=== PATIENT | female | born 1960 | race Caucasian/White ===

== ENCOUNTER → 2016-12-25 | Outpatient (CLI) | payer BC ==
[~2016-12-25] MED LIST: ASCO500T20 PO; CALC1TAB76 PO; DIPH25TA82 PO; ESTR1TAB24 PO; ESTR1TAB50 PO; ESTR2TAB PO; HYDR-3730 PO; HYDR1TAB PO; KRIL1CAP12 PO; KRIL500C PO; METH4TAB PO; MULT-1029 PO; MULT-974 PO; NF-ESOM40C PO; OXYC-12 PO; SCR1T1 PO; VITA400T9 PO
--- OUTSIDE RECORDS SUMMARY | 2016-12-25 11:08 | XMS REPORT | Continuity of Care Document ---
Author Author [facility] Organization [facility] Address Unknown Phone Unavailable Care Team Providers Care Keyboard Action Assembler Name Role Phone SOFIA WHITEHEAD MD PCP Insurance Providers Payer Name Policy Number Subscriber Name Relationship [facility] [id number] Andrew Arzola W 01 Advance Directives Directive Response Recorded Date/Time Advance Directives No 03/15/15 11:10am Health Care Power of Window And Door Installer No 03/15/15 11:10am Organ Donor Yes 03/15/15 11:10am Resuscitation Status Full Code 03/15/15 11:10am Problems No known problems or medical conditions. Medications Medication Dose Route Sig Days/Qty Instructions Order Date Discontinued Date Status Diphenhydramine HCl (Benadryl) 1 Each PO QID PRN 10/18/10 03/15/15 Discontinued Sucralfate 1 Gm PO BEFORE MEALS AND AT BEDTIME 10/18/10 Active Esomeprazole Magnesium 1 Cap PO DAILY 30 Qty 10/18/10 Active Acetaminophen/Hydrocodone Bitart 1 - 2 Each PO Q4HR PRN 14 Qty 03/15/15 Discontinued Methylprednisolone 1 Packet PO DIRECTED 1 Qty 01/24/12 03/15/15 Discontinued Estradiol/Noreth Ac 1 Each PO DAILY 03/15/15 Active Multivitamin 1 Each PO DAILY 03/15/15 Active Krill Oil 500 Mg PO DAILY 03/15/15 Active Vitamin E Mixed 400 Unit PO DAILY 03/15/15 Active Ascorbic Acid 500 Mg GT DAILY 03/15/15 Active Social History Social History Problem Response Recorded Date/Time Recent Foreign Travel No 03/15/2015 11:21am Smoking Status Never a Smoker 03/15/2015 11:14am Do you dip or chew tobacco? No 03/15/2015 11:14am Query Response Start Date Stop Date Smoking Status Never a Smoker Hospital Discharge Instructions No hospital discharge instructions. Plan of Care No plan of care. Functional Status No functional status results. Allergies, Adverse Reactions, Alerts Allergen Type Severity Reaction Status Last Updated Sulfa (Sulfonamide Antibiotics) ([id number]) Allergy Unknown Active 27/05 Codeine Allergy Unknown Active 04/27/07 Erythromycin base Allergy Unknown Active 04/27/07 Immunizations Name Given Type Date of Influenza Vaccine 08/15/11 Historical Vital Signs Acute Vital Signs Vital Response Date/Time Temperature (Fahrenheit) 97.8 degrees F (97.6 - 99.5) Temperature (Calculated Celsius) 36.36172 degrees C (36.4 - 37.5) Temperature Source Tympanic Pulse Rate (adult) 61 bpm (60 - 90) Respiratory Rate 16 bpm (12 - 24) O2 Sat by Pulse Oximetry 97 % (88 - 100) Blood Pressure 117/76 mm Hg Pain Pain Intensity 0 Height (Feet) 5 feet Height (Inches) 7.00 inches Height (Calculated Centimeters) 170.543793 cm Weight (Pounds) 209 pounds Weight (Calculated Grams) 59929.806 gm Weight (Calculated Kilograms) 94.974931 kilograms Height 5 ft 7 in Weight 209 lb Body Mass Index 32.7 kg/m^2 Results No known relevant diagnostic tests, laboratory data and/or discharge summary. Procedures Procedure Status Date Provider(s) Esophagogastroduodenoscopy (EGD) with dilation completed 03/15/15 KEVIN LIRA MD Encounters Encounter Location Date/Time Registered [facility] 03/15/15 9:56am Registered Clinic [facility] 03/13/15 5:58am
[2016-12-25 11:58] LABS: THYROID STIMULATING HORMONE 2.32 UIU/ML (0.35-4.94)
== END ==
LOC: LAB 11:05
PROVIDERS: ATTEND Internal Medicine Endocrinology, Diabetes & Metabolism
DX: E03.9 Hypothyroidism, unspecified (principal)
CPT/HCPCS: 36415; 84439; 84443

== ENCOUNTER → 2017-01-12 | Outpatient (CLI) | payer BC ==
--- OUTSIDE RECORDS SUMMARY | 2017-01-12 16:09 | XMS REPORT | Continuity of Care Document ---
Author Author [facility] Organization [facility] Address Unknown Phone Unavailable Care Team Providers Care Credit Support Specialist Name Role Phone SOFIA WHITEHEAD MD PCP Insurance Providers Payer Name Policy Number Subscriber Name Relationship [facility] [id number] Andrew Arzola W 01 Advance Directives Directive Response Recorded Date/Time Advance Directives No 03/15/15 11:10am Health Care Power of Furnace Mechanic No 03/15/15 11:10am Organ Donor Yes 03/15/15 [...] Reaction Status Last Updated Sulfa (Sulfonamide Antibiotics) ([id number]) Allergy Unknown Active 27/05 Codeine Allergy Unknown Active 04/27/07 Erythromycin base Allergy Unknown Active 04/27/07 Immunizations Name Given Type Date of Influenza Vaccine 08/15/11 Historical Vital Signs Acute Vital Signs Vital Response Date/Time Temperature (Fahrenheit) 97.8 degrees F (97.6 - 99.5) Temperature (Calculated Celsius) 36.68440 degrees C (36.4 - 37.5) Temperature Source Tympanic Pulse Rate (adult) 61 bpm (60 - 90) Respiratory Rate 16 bpm (12 - 24) O2 Sat by Pulse Oximetry 97 % (88 - 100) Blood Pressure 117/76 mm Hg Pain Pain Intensity 0 Height (Feet) 5 feet Height (Inches) 7.00 inches Height (Calculated Centimeters) 170.449737 cm Weight (Pounds) 209 pounds Weight (Calculated Grams) 14422.806 gm Weight (Calculated Kilograms) 94.526482 kilograms Height 5 ft 7 in Weight 209 lb Body Mass Index 32.7 kg/m^2 Results No known relevant diagnostic tests, laboratory data and/or discharge summary. Procedures Procedure Status Date Provider(s) Esophagogastroduodenoscopy (EGD) with dilation completed 03/15/15 KEVIN LIRA MD Encounters Encounter Location Date/Time Registered Surgical Day Care [facility] 03/15/15 9:56am Registered Clinic [facility] 03/13/15 5:58am
--- NOTE | 2017-01-12 18:24 | Diagnostic Imaging Report ---
PROCEDURE: US Thyroid. TECHNIQUE: Multiple real-time grayscale images were obtained of the thyroid in various projections. INDICATION: Globus sensation. FINDINGS: The right thyroid lobe is 4.5 x 1.8 x 1.1 cm. The left lobe is 4.2 x 1.1 x 1.1 cm. There is a 0.5 x 0.4 x 0.8 cm nodule in the right thyroid lobe with mixed solid and cystic component seen. No other thyroid nodule noted. IMPRESSION: Nonspecific 0.8 cm mixed solid and cystic nodule in the upper right thyroid lobe. A follow-up study in 6-12 months is recommended. Dictated by: Dictated on workstation # [id number]
== END ==
LOC: RAD 14:02
PROVIDERS: ATTEND Internal Medicine Endocrinology, Diabetes & Metabolism
DX: E04.1 Nontoxic single thyroid nodule (principal)
CPT/HCPCS: 76536

== ENCOUNTER → 2017-11-22 | Outpatient (CLI) | payer BC ==
--- NOTE | 2017-11-22 14:52 | Diagnostic Imaging Report ---
PROCEDURE: US Thyroid. TECHNIQUE: Multiple real-time grayscale images were obtained of the thyroid in various projections. INDICATION: Thyroid nodule. Comparison made with prior examination from 01/12/2017. FINDINGS: Right lobe of the thyroid measures 5 x 1.5 x 1.2 cm. Left lobe measures 4 x 1.1 x 1.2 cm. The previously seen nodule in the right lobe of the thyroid has resolved. There are no discrete solid or cystic nodules in either lobe. IMPRESSION: Normal thyroid ultrasound. Dictated by: Dictated on workstation # [id number]
== END ==
LOC: RAD 13:35
PROVIDERS: ATTEND Internal Medicine Endocrinology, Diabetes & Metabolism
DX: E04.1 Nontoxic single thyroid nodule (principal)
CPT/HCPCS: 76536

== ENCOUNTER → 2017-11-26 | Outpatient (CLI) | payer BC | LOC: LAB 15:40 | PROVIDERS: ATTEND Internal Medicine Endocrinology, Diabetes & Metabolism | DX: E03.9 Hypothyroidism, unspecified (principal) | CPT/HCPCS: 36415; 84443 ==

== ENCOUNTER → 2018-04-28 | Outpatient (CLI) | payer BC ==
--- NOTE | 2018-04-28 19:22 | Diagnostic Imaging Report ---
INDICATION: Routine screening. COMPARISON: Comparison is made with prior studies from 07/29/2016 and 05/30/2015. TECHNIQUE: 2D and 3D bilateral screening mammography was performed with computer-aided detection (CAD) system. FINDINGS: Both breasts remain heterogeneously dense, limiting the sensitivity of mammography. The parenchymal pattern is stable. There are benign calcifications present. Benign-appearing calcifications have developed in the medial aspect of the left breast. No mass or malignant appearing microcalcifications are seen. The axillae are unremarkable. IMPRESSION: No mammographic features suspicious for malignancy are identified. ACR BI-RADS Category 2: Benign findings. Result letter will be mailed to the patient. Note: At least 10% of breast cancer is not imaged by mammography. Dictated by: Dictated on workstation # [id number]
== END ==
LOC: RAD 07:25
PROVIDERS: ATTEND Obstetrics & Gynecology
DX: Z12.31 Encounter for screening mammogram for malignant neoplasm of breast (principal)
CPT/HCPCS: 77067

== ENCOUNTER → 2018-05-20 | Outpatient (CLI) | payer BC ==
[2018-05-20 07:52] LABS: BASOPHILS % (AUTO) 0 % (0-10); EOSINOPHILS # (AUTO) 0.3 10^3/uL (0.0-0.3); EOSINOPHILS % (AUTO) 4 % (0-10); HEMATOCRIT 42 % (35-52); HEMOGLOBIN 13.9 G/DL (11.5-16.0); LYMPHOCYTES # (AUTO) 2.5 X 10^3 (1.0-4.0); LYMPHOCYTES % (AUTO) 39 % (12-44); MEAN CORPUSCULAR HEMOGLOBIN 30 PG (25-34); MEAN CORPUSCULAR HGB CONC 33 G/DL (32-36); MEAN CORPUSCULAR VOLUME 91 FL (80-99); MEAN PLATELET VOLUME 10.2 FL (7.4-10.4); MONOCYTES # (AUTO) 0.7 X 10^3 (0.0-1.0); MONOCYTES % (AUTO) 11 % (0-12); NEUTROPHILS # (AUTO) 2.9 X 10^3 (1.8-7.8); NEUTROPHILS % (AUTO) 46 % (42-75); PLATELET COUNT 238 10^3/uL (130-400); RED BLOOD COUNT 4.61 10^6/uL (4.35-5.85); RED CELL DISTRIBUTION WIDTH 13.7 % (10.0-14.5); WHITE BLOOD COUNT 6.4 10^3/uL (4.3-11.0)
[2018-05-20 08:17] LABS: ALANINE AMINOTRANSFERASE 43 U/L (0-55); ALBUMIN 3.6 GM/DL (3.2-4.5); ALKALINE PHOSPHATASE 59 U/L (40-136); BILIRUBIN,TOTAL 0.4 MG/DL (0.1-1.0); BUN/CREATININE RATIO 16; CALCIUM 8.8 MG/DL (8.5-10.1); CARBON DIOXIDE 26 MMOL/L (21-32); CHLORIDE 106 MMOL/L (98-107); CHOLESTEROL 194 MG/DL (< 200); GFR ESTIMATED > 60; GLUCOSE 94 MG/DL (70-105); HDL CHOLESTEROL 44 MG/DL (40-60); SODIUM 138 MMOL/L (135-145); TOTAL PROTEIN 6.8 GM/DL (6.4-8.2); TRIGLYCERIDES 201 MG/DL (<150); VLDL CHOLESTEROL 40 MG/DL (5-40)
[2018-05-20 08:41] LABS: BAND NEUTROPHILS 0 %; BASOPHILS % (MANUAL) 0 %; EOSINOPHILS % (MANUAL) 7 %; LYMPHOCYTES % (MANUAL) 35 %; MONOCYTES % (MANUAL) 11 %; NEUTROPHILS % (MANUAL) 47 %; RBC MORPH NORMAL
== END ==
LOC: LAB 07:29
PROVIDERS: ATTEND Family Medicine
DX: Z00.00 Encounter for general adult medical examination without abnormal findings (principal); E05.90 Thyrotoxicosis, unspecified without thyrotoxic crisis or storm
CPT/HCPCS: 36415; 80053; 80061; 84443; 85007; 85027

== ENCOUNTER → 2019-01-04 | Outpatient (CLI) | payer BC ==
--- NOTE | 2019-01-04 14:57 | Diagnostic Imaging Report ---
PROCEDURE: MRI lumbar spine. TECHNIQUE: Multiplanar, multisequence MRI of the lumbar spine was performed without contrast. INDICATION: Low back pain and left leg pain as well as bilateral leg numbness. Comparison is made with prior MRI of the lumbar spine from 03/12/2011. Curvature of the lumbar spine is normal. There is minimal retrolisthesis of L2 on L3 with minimal anterolisthesis of L5 on S1. Vertebral body heights are maintained. No compression fracture seen. No geographic marrow lesion is seen. There is some generalized degenerative disc disease with variable disc space narrowing and desiccation. The conus is unremarkable at the L1-L2 level. T12-L1: Central canal is widely patent. Neural foramina are patent. L1-L2: Central canal is widely patent. Neuroforamina are patent. L2-L3: There is some mild broad-based disc/osteophyte complex in the far lateral portions on the right and left producing some mild neuroforaminal narrowing. Central canal is widely patent. No focal disc protrusion is seen. L3-L4: Central canal widely patent. Neural foramina are patent. L4-L5: There is some slight flattening of the ventral thecal sac due to annular bulging but the central canal remains patent. Right neural foramen is mildly narrowed. There does appear to be a probable large extruded disc in the far left lateral portion producing narrowing of the left neural foramen and impingement upon the L4 nerve root. Extruded disc in the far left lateral portion measures approximate 11 mm x 13 mm. L5-S1: Broad-based disc/osteophyte complex does indent the ventral thecal sac. There is mild narrowing of the canal. There are hypertrophic facet changes present. There is moderate right and mild left neural foraminal stenosis. Paraspinous tissues are unremarkable. IMPRESSION: Multilevel lumbar spondylosis, described level by level above. There does appear to be a large left far lateral extruded disc and perhaps sequestered disc at the L4-L5 level, likely impinging upon the exiting left L4 nerve. No acute compression fracture is seen. Dictated by: Dictated on workstation # [id number]
== END ==
LOC: RAD 13:45
PROVIDERS: ATTEND Family Medicine
DX: M48.07 Spinal stenosis, lumbosacral region (principal); M47.27 Other spondylosis with radiculopathy, lumbosacral region; M51.16 Intervertebral disc disorders with radiculopathy, lumbar region; M43.16 Spondylolisthesis, lumbar region
CPT/HCPCS: 72148

== ENCOUNTER 2020-07-04 11:17 | Outpatient (CLI) | payer BC ==
[~2020-07-04] VITALS: Ht 170.2 cm; Wt 100.9 kg
[2020-07-04] MEDS: VANCOMYCIN 1 GM/NS 250 ML IVPB IV NR ×2 (12:13)
[2020-07-04 13:25] VITALS: BP 137/69
== END 2020-07-04 13:25 | disposition home or self-care (01) ==
LOC: SDC 11:17
PROVIDERS: ATTEND Nurse Practitioner Family
DX: B95.62 Methicillin resistant Staphylococcus aureus infection as the cause of diseases classified elsewhere (principal)
CPT/HCPCS: 96365

== ENCOUNTER 2020-10-01 14:57 | Day surgery (SDC) | payer BC ==
[~2020-10-01] VITALS: Ht 170.2 cm; Wt 90.9 kg
[2020-10-01 14:55] VITALS: BP 140/70
[2020-10-01] MEDS ORDERED: VANCOMYCIN 1 GM/NS 250 ML IVPB IV ONE ×2 (15:15)
[2020-10-01] MEDS ORDERED: MULT-1029 PO (17:58)
[2020-10-01] MEDS ORDERED: ASCO500T7 PO (17:58)
[2020-10-01] MEDS ORDERED: LEVO50TA PO (17:58)
[2020-10-01] MEDS ORDERED: VITA400T9 PO (17:58)
[2020-10-01] MEDS ORDERED: CALC-227 PO (17:58)
[2020-10-01] MEDS ORDERED: KRIL1CAP12 PO (17:58)
[2020-10-01] MEDS ORDERED: MELO15TA14 PO (17:58)
== END 2020-10-01 16:40 | disposition home or self-care (01) ==
LOC: SDC 14:57
PROVIDERS: ATTEND Family Medicine
DX: L03.319 Cellulitis of trunk, unspecified (principal); Z88.2 Allergy status to sulfonamides; Z88.5 Allergy status to narcotic agent; Z88.1 Allergy status to other antibiotic agents
CPT/HCPCS: 96365

== ENCOUNTER 2020-10-02 14:59 | Outpatient (CLI) | payer BC ==
[~2020-10-02] VITALS: Ht 170.2 cm; Wt 90.9 kg
[~2020-10-02 14:59] MED LIST changes: +ASCO500T7 PO; +CALC-227 PO; +LEVO50TA PO; +MELO15TA14 PO
[2020-10-02 15:12] VITALS: BP 140/61
[2020-10-02] MEDS ORDERED: VANCOMYCIN 1 GM/NS 250 ML IVPB IV ONE ×2 (15:15)
--- NOTE | 2020-10-02 16:40 | NUR ---
VANCOMYCIN INFUSION COMPLETE. APPROX 2X3 INCH AREA OF LIGHT PINK SKIN NOTED PROXIMAL TO IV SITE. PT STATES IT FEELS "A LITTLE ITCHY". PT STATES SHE HAS HAD SLIGHT TO MILD ITCHING WITH MULTIPLE PREVIOUS VANCOMYCIN INFUSIONS AND THAT HER DR IS AWARE, HAS TOLD HER TO TAKE BENADRYL. DENIES ANY OTHER COMPLAINTS. ADVISED PT TO RETURN TO HOSPITAL IMMEDIATELY FOR INCREASED RASH, DIFFICULTY BREATHING, FACIAL OR THROAT SWELLING, OR ANY OTHER PROBLEMS OR CONCERNS. PT STATES SHE HAS APPOINTMENT TO SEE HER DOCTOR TOMORROW FOR FOLLOW UP. IV DC'D.
== END 2020-10-02 16:40 | disposition home or self-care (01) ==
LOC: SDC 14:59
PROVIDERS: ATTEND Nurse Practitioner Family
DX: A49.02 Methicillin resistant Staphylococcus aureus infection, unspecified site (principal); L02.211 Cutaneous abscess of abdominal wall
CPT/HCPCS: 96365

== ENCOUNTER → 2020-10-14 | Outpatient (CLI) | payer BC ==
--- NOTE | 2020-10-15 09:17 | Diagnostic Imaging Report ---
INDICATION: Routine screening. COMPARISON: 06/19/2019 and 04/28/2018. TECHNIQUE: 2D and 3D bilateral screening mammography was performed with CAD. FINDINGS: Both breasts remain heterogeneously dense, limiting the sensitivity of mammography. The parenchymal pattern appears stable. No mass or malignant appearing microcalcifications are seen. There are benign calcifications present. The axillae are unremarkable. IMPRESSION: No mammographic features suspicious for malignancy are identified. ACR BI-RADS Category 2: Benign findings. Result letter will be mailed to the patient. Note: At least 10% of breast cancer is not imaged by mammography. Dictated by: Dictated on workstation # [id number]
== END ==
LOC: RAD 14:19
PROVIDERS: ATTEND Nurse Practitioner Family
DX: Z12.31 Encounter for screening mammogram for malignant neoplasm of breast (principal)
CPT/HCPCS: 77063; 77067

== ENCOUNTER → 2021-08-11 | Outpatient (CLI) | payer BC ==
--- NOTE | 2021-08-11 11:38 | Diagnostic Imaging Report ---
EXAMINATION: Lumbar spine MRI without contrast, 08/11/2021. TECHNIQUE: Multiplanar, multisequence MRI of the lumbar spine was performed without contrast. INDICATION: Worsening low back pain. FINDINGS: There is minimal grade 1 anterolisthesis of L5 on S1. Remaining alignment is preserved. Vertebral body heights are maintained. Tip of the conus is unremarkable in appearance and location. L1-L2: There is intervertebral disc space narrowing, disc desiccation, and mild broad-based bulging disc material with bilateral facet and ligamentum flavum hypertrophy. Secondary mild central narrowing is noted. There is no significant neural foraminal stenosis. L2-L3: There is intervertebral disc space narrowing and disc desiccation as well as bilateral facet and ligamentum flavum hypertrophy. No central stenosis. Neural foramina demonstrate moderate narrowing bilaterally. L3-L4: There is bilateral facet and ligamentum flavum hypertrophy. No significant bulging disc material. Central canal is patent. Neural foramina are unremarkable. L4-L5: There is intervertebral disc space narrowing, disc desiccation, and a broad-based bulging disc. There is bilateral facet and ligamentum flavum hypertrophy. Findings cause mild central stenosis with narrowing of the right lateral recess. There is moderate bilateral neural foraminal stenosis. L5-S1: There is disc desiccation with a broad-based bulging disc. There is bilateral facet and ligamentum flavum hypertrophy. There is moderate central stenosis with narrowing of the left lateral recess. There is moderate left neural foraminal narrowing. The right neural foramen is patent. The visualized intra-abdominal structures demonstrate cystic lesions in the right kidney, too small for characterization. No acute abnormality appreciated. IMPRESSION: 1. Multilevel degenerative findings as discussed above. Dictated by: Dictated on workstation # [id number]
== END ==
LOC: RAD 10:15
PROVIDERS: ATTEND Family Medicine
DX: M47.817 Spondylosis without myelopathy or radiculopathy, lumbosacral region (principal); M51.36 Other intervertebral disc degeneration, lumbar region; N28.1 Cyst of kidney, acquired; M51.27 Other intervertebral disc displacement, lumbosacral region; M48.07 Spinal stenosis, lumbosacral region
CPT/HCPCS: 72148

== ENCOUNTER → 2022-02-24 | Outpatient (CLI) | payer BC ==
[~2022-02-24] MED LIST changes: -ESTR2TAB PO; +ESTR2TAB3 PO
--- NOTE | 2022-02-24 12:36 | Diagnostic Imaging Report ---
Indication: Routine screening. Comparison is made with prior mammogram 10/14/2020 and 06/19/2019. 2-D and 3-D bilateral screening mammography was performed with CAD. CAD monitoring, CABG. Both breasts are heterogeneously dense, limiting the sensitivity of mammography. Benign calcifications are noted bilaterally. No mass or malignant-appearing microcalcifications are seen. Axillae are unremarkable. IMPRESSION: BI-RADS Category 2 No mammographic features suspicious for malignancy are identified. ACR BI-RADS Category 2: Benign findings. Result letter will be mailed to the patient. Note: At least 10% of breast cancer is not imaged by mammography. Dictated by: Dictated on workstation # [id number]
== END ==
LOC: RAD 09:00
PROVIDERS: ATTEND Nurse Practitioner Family
DX: Z12.31 Encounter for screening mammogram for malignant neoplasm of breast (principal)
CPT/HCPCS: 77063; 77067

== ENCOUNTER → 2022-05-13 | Outpatient (CLI) | payer BC ==
--- NOTE | 2022-05-13 16:51 | Diagnostic Imaging Report ---
PROCEDURE: US Renal/Bladder. TECHNIQUE: Multiple real-time grayscale images were obtained over the kidneys in various projections bilaterally. INDICATION: Urinary frequency. COMPARISON: None. FINDINGS: Right: The right kidney measures 9.5 cm in length. Renal cortical thickness and echogenicity are within normal limits. There is no evidence of calculi, solid focal mass or hydronephrosis. No perinephric fluid collections are identified. Left: The left kidney measures 9.1 cm in length. Renal cortical thickness and echogenicity are within normal limits. Ill-defined area of hypoattenuation is seen in the left kidney measuring 3.6 x 3.7 cm with some internal vascularity. There is no evidence of calculi or hydronephrosis. No perinephric fluid collections are identified. There is no abdominal ascites. Views of the pelvis demonstrate a nondistended urinary bladder. The bilateral ureteral jets are visualized. No large intraluminal filling defect or calculi are identified. IMPRESSION: 1. Indeterminate area in the left kidney with internal vascularity measuring 3.6 x 3.7 cm. This may represent a renal mass. Recommend further evaluation with contrast-enhanced CT of the abdomen and pelvis. Dictated by: Dictated on workstation # [id number]
== END ==
LOC: RAD 14:41
PROVIDERS: ATTEND Nurse Practitioner Family
DX: R35.0 Frequency of micturition (principal)
CPT/HCPCS: 76770

== ENCOUNTER → 2022-05-20 | Outpatient (CLI) | payer BC ==
[~2022-05-20] MED LIST changes: +CATHETER FLUSH 10 ML SYR IV PRN; +HOLD METFORMIN - RECEIVED CONTRAST 20 ML VIAL IV SCH; +IOHEXOL 350 MG/ML 100 ML (OMNIPAQUE 350) VIAL IV ONE; +NS 100 ML (IVPB) BAG IV ONE
[2022-05-20 09:57] LABS: CREATININE SERUM 1.01 MG/DL (0.60-1.30)
--- NOTE | 2022-05-20 10:58 | Diagnostic Imaging Report ---
EXAMINATION: CT abdomen with and without intravenous contrast. TECHNIQUE: Precontrast acquisitions were acquired through the abdomen . Multiple contiguous axial images were obtained through the abdomen after the administration of intravenous contrast. All CT scans use one or more of the following dose optimizing techniques: automated exposure control, MA and/or KvP adjustment based on patient size and exam type or iterative reconstruction. HISTORY: Renal lesion evaluation. COMPARISON: 05/13/2022 FINDINGS: Lung bases: Bibasilar dependent atelectasis. Solid organs: The liver is normal without focal lesion. The gallbladder is surgically absent. There is no biliary ductal dilation. Pancreas is normal. Spleen is normal. Adrenal glands are normal. There is bilateral renal cortical scarring and irregularity. No visualized renal calculus, hydronephrosis, or suspicious enhancing renal lesion. Bowel: No bowel obstruction. Peritoneum: There is no intraperitoneal free fluid or free air. No suspicious lymphadenopathy. Vasculature: Normal without aneurysm. Musculoskeletal: Degenerative changes of the spine without suspicious osseous lesion or compression fracture. IMPRESSION: 1. Cortical irregularity and scarring seen within the kidneys without suspicious enhancing renal lesion. 2. Otherwise unremarkable CT of the abdomen. Dictated by: Dictated on workstation # [id number]
== END ==
LOC: RAD 10:45
PROVIDERS: ATTEND Nurse Practitioner Family
DX: N28.89 Other specified disorders of kidney and ureter (principal)
CPT/HCPCS: 36415; 74170; 82565; 84520

== ENCOUNTER 2022-08-31 10:54 | Emergency (ER) | payer BC ==
[~2022-08-31 10:54] MED LIST changes: -CATHETER FLUSH 10 ML SYR IV PRN; -HOLD METFORMIN - RECEIVED CONTRAST 20 ML VIAL IV SCH; -IOHEXOL 350 MG/ML 100 ML (OMNIPAQUE 350) VIAL IV ONE; -NS 100 ML (IVPB) BAG IV ONE
[2022-08-31 11:03] VITALS: BP 161/95
[2022-08-31 11:28] LABS: BASOPHILS % (AUTO) 1 % (0-10); EOSINOPHILS # (AUTO) 0.2 10^3/uL (0.0-0.3); EOSINOPHILS % (AUTO) 3 % (0-10); HEMATOCRIT 43 % (35-52); HEMOGLOBIN 13.7 g/dL (11.5-16.0); LYMPHOCYTES # (AUTO) 2.1 10^3/uL (1.0-4.0); LYMPHOCYTES % (AUTO) 32 % (12-44); MEAN CORPUSCULAR HEMOGLOBIN 30 pg (25-34); MEAN CORPUSCULAR HGB CONC 32 g/dL (32-36); MEAN CORPUSCULAR VOLUME 93 fL (80-99); MEAN PLATELET VOLUME 10.1 fL (9.0-12.2); MONOCYTES # (AUTO) 0.4 10^3/uL (0.0-1.0); MONOCYTES % (AUTO) 7 % (0-12); NEUTROPHILS # (AUTO) 3.8 10^3/uL (1.8-7.8); NEUTROPHILS % (AUTO) 58 % (42-75); PLATELET COUNT 239 10^3/uL (130-400); WHITE BLOOD COUNT 6.5 10^3/uL (4.3-11.0)
--- NOTE | 2022-08-31 12:43 | Diagnostic Imaging Report ---
PROCEDURE: US right lower extremity venous. TECHNIQUE: Multiple real-time grayscale images were obtained over the right lower extremity in various projections. Additional spectral analysis and color Doppler duplex images were also obtained. INDICATION: Lateral thrombophlebitis. Corresponding to the area of clinical complaint, there is an unnamed superficial venous varicosity occluded and tender consistent with superficial venous thrombophlebitis. The deep venous system however was widely patent, no femoropopliteal deep or superficial, no femoropopliteal thrombus. The major deep calf veins are patent. IMPRESSION: 1. Negative for DVT. 2. Superficial thrombosed venous varicosity in the region of clinical complaint, presumed superficial thrombophlebitis. Dictated by: Dictated on workstation # [id number]
--- NOTE | 2022-08-31 12:44 | ED Lower Extremity ---
General Chief Complaint: General Problems/Pain Stated Complaint: INFECTION Nursing Triage Note: PT ARRIVAL TO ER VIA PRIVATE VEHICLE WITH COMPLAINT OF POSSIBLE R KNEE INFECTION. PT STATES THAT SHE WAS BIT BY A [place] WEDNESDAY OF LAST WEEK AND FEELS LIKE HER KNEE IS NOW INFECTED. PAIN TO KNEE. NO OBVIOUS REDNESS, OR SWELLING NOTED. PT WAS SEEN AT WALK IN CLINIC AND RECIEVED CLINDAMYCIN, ROCEPHIN SHOT, AND AMOXICILLIN. PT WENT TO WALK IN [facility] X3 DAYS. Source: patient Exam Limitations: no limitations History of Present Illness Date Seen by Provider: Aug 31, 2022 Time Seen by Provider: 12:41 Initial Comments To ER with a tender palpable cord to the lateral right proximal tib/fib knee and distal femur. Is been present for several days. She has been to urgent care 3 days in a row and has been given Rocephin and then clindamycin and amoxicillin. She denies fevers or chills. No known injury though this did seem to start with a mosquito bite at the distal aspect of this lesion. Onset: last week Severity: moderate Pain/Injury Location: right leg Method of Injury: unknown Modifying Factors: Worse With Movement Allergies and Home Medications Allergies Coded Allergies: Sulfa (Sulfonamide Antibiotics) (Unverified Allergy, Unknown, 04/27/07) codeine (Unverified Allergy, Unknown, 04/27/07) erythromycin base (Unverified Allergy, Unknown, 04/27/07) Patient Home Medication List Home Medication List Reviewed: Yes Ascorbic Acid (Ascorbic Acid) 500 Mg Tablet, 500 MG PO DAILY, (Reported) Entered as Reported by: ANDRES WILLOUGHBY on 10/01/201757 Calcium Carbonate/Vitamin D3 (Calcium 250+D Tablet) 1 Each Tablet, 1 EACH PO HS, (Reported) Entered as Reported by: ANDRES WILLOUGHBY on 10/01/201757 Estradiol (Estradiol Tablet) 2 Mg Tablet, 2 MG PO HS, (Reported) Entered as Reported by: PURVI BOONE on 07/02/16 1057 Krill/[place]-3/Dha/Epa/Lipids (Krill Oil 300 mg Softgel) 1 Each Capsule, 1 EACH PO HS, (Reported) Entered as Reported by: ANDRES WILLOUGHBY on 10/01/201757 Levothyroxine Sodium (Synthroid) 50 Mcg Tablet, 50 MCG PO DAILY, (Reported) Entered as Reported by: ANDRES WILLOUGHBY on 10/01/201757 Meloxicam (Mobic) 15 Mg Tablet, 15 MG PO DAILY, (Reported) Entered as Reported by: ANDRES WILLOUGHBY on 10/01/201757 Multivit-Min/FA/Lycopene/Lut (Centrum Silver Tablet) 1 Each Tablet, 1 EACH PO HS, (Reported) Entered as Reported by: ANDRES WILLOUGHBY on 10/01/201757 Vitamin E Mixed (Vitamin E) 400 Unit Tablet, 3 TAB PO HS, (Reported) Entered as Reported by: ANDRES WILLOUGHBY on 10/01/201757 Review of Systems Constitutional: see HPI; No chills EENTM: see HPI Respiratory: no symptoms reported Cardiovascular: no symptoms reported Genitourinary: no symptoms reported Musculoskeletal: no symptoms reported Skin: no symptoms reported Psychiatric/Neurological: No Symptoms Reported Past [id number] Hx Patient Social History Tobacco Use?: No Use of E-Cig and/or Vaping dev: No Substance use?: No Alcohol Use?: No Pt feels they are or have been: No Immunizations Up To Date Influenza Vaccine Up-to-Date: Yes; Up-to-Date COVID19 Vaccine [place]: Moderna Past Medical History Reproductive Disorders: Yes Gall Bladder Disease Physical Exam Vital Signs Vital Signs - First Documented 08/31/22 11:03 Temp 36.9 Pulse 69 Resp 18 B/P (MAP) 161/95 (117) Pulse Ox 99 Capillary Refill : Less Than 3 Seconds Height, Weight, BMI Height: 5'7.00" Weight: 210lbs. 0.0oz. 95.390182pe; 32.89 BMI Method:Stated General Appearance: WD/WN, no apparent distress HEENT: PERRL/EOMI, normal ENT inspection Neck: non-tender, full range of motion Respiratory: no respiratory distress, no accessory muscle use Hips: bilateral hip non-tender, bilateral hip normal inspection, bilateral hip normal range of motion Legs: right leg other (Tender palpable slightly erythematous cord from the lateral aspect of the proximal fibular region to the distal lateral femur and then moving a bit more anterior/medial. No distal swelling. She has a great deal of varicose veins bilateral lower extremities.) Knees: bilateral knee non-tender, bilateral knee normal inspection Ankles: bilateral ankle non-tender, bilateral ankle normal inspection Feet: bilateral foot non-tender, bilateral foot normal inspection Neurologic/Psychiatric: alert, normal mood/affect, oriented x 3 Skin: normal color, warm/dry Progress/Results/Core Measures Results/Orders Lab Results Laboratory Tests Test 08/31/22 11:21 Range/Units White Blood Count 6.5 4.3-11.0 10^3/uL Red Blood Count 4.58 3.80-5.11 10^6/uL Hemoglobin 13.7 11.5-16.0 g/dL Hematocrit 43 35-52 % Mean Corpuscular Volume 93 80-99 fL Mean Corpuscular Hemoglobin 30 25-34 pg Mean Corpuscular Hemoglobin Concent 32 32-36 g/dL Red Cell Distribution Width 13.7 10.0-14.5 % Platelet Count 239 130-400 10^3/uL Mean Platelet Volume 10.1 9.0-12.2 fL Immature Granulocyte % (Auto) 0 % Neutrophils (%) (Auto) 58 42-75 % Lymphocytes (%) (Auto) 32 12-44 % Monocytes (%) (Auto) 7 0-12 % Eosinophils (%) (Auto) 3 0-10 % Basophils (%) (Auto) 1 0-10 % Neutrophils # (Auto) 3.8 1.8-7.8 10^3/uL Lymphocytes # (Auto) 2.1 1.0-4.0 10^3/uL Monocytes # (Auto) 0.4 0.0-1.0 10^3/uL Eosinophils # (Auto) 0.2 0.0-0.3 10^3/uL Basophils # (Auto) 0.0 0.0-0.1 10^3/uL Immature Granulocyte # (Auto) 0.0 0.0-0.1 10^3/uL My Orders Orders - NIGEL MENCHACA APRN Cbc With Automated Diff (08/31/22 11:11) Us Venous Lower Ext Rt (08/31/22 11:13) Vital Signs/I&O 08/31/22 11:03 Temp 36.9 Pulse 69 Resp 18 B/P (MAP) 161/95 (117) Pulse Ox 99 Blood Pressure Mean: 117 Departure Communication (Admissions) Superficial venous thrombosis seen on ultrasound, greater than 5 cm from deep venous system, no deep venous thrombosis. No need for oral anticoagulation. States she cannot take ibuprofen because of kidney issues and GI upset. We will have her continue with warm compresses and discontinue the antibiotics. Impression Primary Impression: Superficial thrombophlebitis Disposition: HOME, SELF-CARE Condition: Stable Departure-Patient Inst. Decision time for Depature: 12:44 Patient Instructions: Superficial Phlebitis Copy Copies To 1: DESTINI FAM MD, PETER J APRN Aug 31, 2022 12:44
== END 2022-08-31 12:22 | disposition home or self-care (01) ==
LOC: EDUNIT# 10:54 → ER 10:56
DX: I80.8 Phlebitis and thrombophlebitis of other sites (principal)
CPT/HCPCS: 36415; 85025